=== PATIENT | male | born 1970 | race Caucasian/White ===

== ENCOUNTER 2017-05-04 18:09 | Emergency (ER) | payer OTHER ==
[2017-05-04] MEDS ORDERED: ALEVE220 M4 PO (18:21)
[2017-05-04] MEDS ORDERED: IBUPROFEN800 M1 PO (18:21)
[2017-05-04] MEDS ORDERED: PRINIVIL20 M1 PO (18:22)
[2017-05-04] MEDS ORDERED: NORCO 5-325 TA1 EACH PO (19:54)
[2017-05-04] MEDS ORDERED: CYCLOBENZAPRINE10 M1 PO (19:54)
== END 2017-05-04 20:05 ==
LOC: EDMED 18:09
DX: S06.0X1A Concussion with loss of consciousness of 30 minutes or less, initial encounter (principal); S46.912A Strain of unspecified muscle, fascia and tendon at shoulder and upper arm level, left arm, initial encounter; S46.911A Strain of unspecified muscle, fascia and tendon at shoulder and upper arm level, right arm, initial encounter; S00.81XA Abrasion of other part of head, initial encounter; I10 Essential (primary) hypertension; Z23 Encounter for immunization; F17.200 Nicotine dependence, unspecified, uncomplicated; Z79.899 Other long term (current) drug therapy; W01.198A Fall on same level from slipping, tripping and stumbling with subsequent striking against other object, initial encounter; Y92.019 Unspecified place in single-family (private) house as the place of occurrence of the external cause